=== PATIENT | female | born 1995 | race Caucasian/White ===

== ENCOUNTER 2016-07-26 16:56 | Emergency (ER) | payer BC ==
--- NOTE | 2016-07-26 17:39 | EDPHY ---
H & P Stated Complaint: Fever, nausea, cough, lethagy, aches-neg flu/mono strep yesterday. Time Seen by Provider: 07/26/16 17:09 HPI/ROS: CHIEF COMPLAINT: fever, body aches HISTORY OF PRESENT ILLNESS: 20-year-old female presents emergency department complaining a 3 day history of fevers, body aches. Patient reports mild nasal congestion, a mild intermittent cough. She reports nausea, vomiting and diarrhea that started yesterday. She denies abdominal pain. Patient denies urinary urgency, frequency or dysuria. No hematuria. She denies sore throat. No neck pain. Patient was seen at [facility] Monday, Monday and today. She reports they did a influenza, rapid strep and Monospot that were all negative. Patient last took Tylenol this morning. She has been unable to keep any food or fluids down today. Patient was started on a Z-Hilario today, she was unable to keep the 1st dose down. Her roommate was recently diagnosed with strep throat. The patient reports she has had strep throat many times, this does not feel similar, she does not have a sore throat. 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 Patient reports she has had a fever and body aches a few different times in the last few weeks. She denies chest pain or shortness of breath. REVIEW OF SYSTEMS: A comprehensive 10 point review of systems is otherwise negative aside from elements mentioned in the history of present illness. Source: Patient Exam Limitations: No limitations - Personal History LMP (Females 10-55): 8-14 Days Ago Current Tetanus/Diphtheria Vaccine: Unsure Current Tetanus Diphtheria and Acellular Pertussis (TDAP): Unsure - Medical/Surgical History Hx Asthma: No Hx Chronic Respiratory Disease: No Hx Diabetes: No Hx Cardiac Disease: No Hx Renal Disease: No Hx Cirrhosis: No Hx Alcoholism: No Hx HIV/AIDS: No Hx Splenectomy or Spleen Trauma: No Other PMH: Lemiers syndrome, marijuana. - Social History Smoking Status: Current some day smoker - Physical Exam Exam: Physical Exam Gen: Alert and Oriented, NAD HEENT: PERRL, dry mucous membranes, bilateral TMs normal, bilateral nasal turbinates with erythema, posterior pharynx with erythema, no exudate no hoarseness, no elevation of tongue NECK: Bilateral anterior cervical lymphadenopathy, no meningismus CV: Tachycardic rate and regular rhythm PULM: CTAB, no wheezes ABDOMEN: soft, non tender to palpation, BS present BACK: No CVA tenderness NEURO: Neurologically grossly intact EXTREMITIES: normal appearing SKIN: no rash or break in skin on exposed skin PSYCH: answers questions appropriately. Constitutional: Initial Vital Signs Temperature (C) 38.2 C 07/26/16 16:59 Heart Rate 130 H 07/26/16 16:59 Respiratory Rate 18 07/26/16 16:59 Blood Pressure 80/66 L 07/26/16 16:59 O2 Sat (%) 95 07/26/16 16:59 O2 Delivery Mode Room Air Allergies/Adverse Reactions: No Known Allergies Allergy (Unverified 07/26/16 17:02) Home Medications: Medication Instructions Recorded Ondansetron Odt [Zofran Odt] 4 mg PO Q6-8PRN PRN #8 tab 07/26/16 Orsythia-28 Tablet 07/26/16 Medical Decision Making - Diagnostics Imaging: Chest x-ray independently reviewed by me ED Course/Re-evaluation: IV established, CBC, chemistry panel, urinalysis, lactic acid, blood cultures, influenza, chest x-ray ordered. Patient is given 650 mg of Tylenol p.o. for her temperature of 38.2degrees and 2 L of normal saline are hanging. Repeat vital signs are done when patient arrived to room 18, heart rate down to 100, blood pressure is 100/76. Patient meets the SIRS criteria with an elevated heart rate, hypotension and fever. Patient's white blood cell count is mildly elevated at 11,000 thousand with a left shift, chemistry panel shows a potassium 3.1. I have ordered potassium replacement intravenously and orally as well as 400 mg of magnesium p.o.. Patient has had no emesis or diarrhea in the emergency department. She is feeling much better after IV fluids and Tylenol. After having a conversation with her mother, they are very concerned about her history of Lemierre syndrome. The patient does report a fever intermittently over the past few weeks. Mother states this is how she presented with her diagnosis of Lemierre syndrome. I discussed with the patient and mother that a CT soft tissue neck with IV contrast and CT chest with IV contrast other studies to rule this out. They interested in having done. I discussed the risks and benefits and we have proceeded with these CTs. CT neck and chest are negative for thrombophlebitis or pulmonary embolism. The patient continues feeling better, she has been eating and drinking in the emergency department, her temperature has resolved. She will be discharged home with instructions to return for any worsening symptoms, new symptoms or concerns. She has been given a primary care doctor to establish care with. The patient and family are comfortable with this plan. Differential Diagnosis: Diagnosis considered but not limited to influenza, strep pharyngitis, viral syndrome, Lemierre syndrome. - Data Points Laboratory Results: Laboratory Results 07/26/16 17:20 07/26/16 17:20 Medications Given: Discontinued Medications Acetaminophen (Tylenol) 1,000 mg PO EDNOW ONE Stop: 07/26/16 17:59 Last Admin: 07/26/16 18:06 Dose: 1,000 mg Sodium Chloride (Ns) 1,000 mls @ 0 mls/hr IV ONCE ONE PRN Reason: Wide Open Stop: 07/26/16 18:07 Last Admin: 07/26/16 18:06 Dose: 1,000 mls Potassium Chloride (Potassium Cl 10 Meq (Premix)) 100 mls @ 100 mls/hr IV Q1H BRENDA Stop: 07/26/16 20:29 Last Admin: 07/26/16 20:00 Dose: 100 mls Ibuprofen (Motrin) 600 mg PO EDNOW ONE Stop: 07/26/16 22:52 Last Admin: 07/26/16 23:02 Dose: 600 mg Magnesium Oxide (Magnesium Oxide) 400 mg PO EDNOW ONE Stop: 07/26/16 19:19 Last Admin: 07/26/16 21:19 Dose: 400 mg Ondansetron HCl (Zofran) 4 mg IVP EDNOW ONE Stop: 07/26/16 17:59 Last Admin: 07/26/16 18:06 Dose: 4 mg Ondansetron HCl (Zofran Odt 4 Mg Prepack#2) 1 btl TAKEHOME EDNOW ONE Stop: 07/26/16 22:52 Last Admin: 07/26/16 23:01 Dose: 1 btl Potassium Chloride (Klor-Con) 40 meq PO EDNOW ONE Stop: 07/26/16 19:18 Last Admin: 07/26/16 21:19 Dose: 40 meq Departure - Departure Disposition: Home, Routine, Self-Care Clinical Impression: Viral syndrome Condition: Good Instructions: Ondansetron (By mouth), Viral Syndrome (ED) Additional Instructions: Take 4 mg of Zofran every 8 hours as needed for nausea, eat a bland diet, stay hydrated, take 650 mg of Tylenol every 8 hours with food, you can also take 600 mg of ibuprofen every 8 hours with food. Alternate these every 4 hours. Follow up with the primary care doctor on-call listed, call in the morning to schedule this appointment. Return to the emergency department for any worsening symptoms, new symptoms or concerns. Referrals: Amanuel Flores MD [Medical Doctor] - As per Instructions (Primary care doctor on-call) Stand Alone Forms: School Excuse Prescriptions: Ondansetron Odt [Zofran Odt] 4 mg PO Q6-8PRN PRN #8 tab PRN Reason: Nausea/Vomiting, Can'T Take Po
[2016-07-26 17:46] LABS: % IMMATURE GRANULYOCYTES 0.3 % (0.0-1.1); ABSOLUTE IMMATURE GRANULOCYTES 0.03 10^3/uL (0.00-0.10); ADD DIFF? NO; ADD MORPH? NO; ADD SCAN? NO; ATYPICAL LYMPHOCYTE FLAG 20 (0-99); FRAGMENT RBC FLAG 0 (0-99); HEMATOCRIT 41.2 % (38.0-47.0); HEMOGLOBIN 14.5 g/dL (12.6-16.3); LEFT SHIFT FLG 0 (0-99); LIPEMIA HEMOLYSIS FLAG 90 (0-99); MEAN CELL HEMOGLOBIN 31.9 pg (27.9-34.1); MEAN CELL HEMOGLOBIN CONCENTR. 35.2 g/dL (32.4-36.7); MEAN CELL VOLUME 90.5 fL (81.5-99.8); MEAN PLATELET VOLUME 12.8 fL (8.7-11.7); PLATELET CLUMPS FLAG 0 (0-99); PLATELET COUNT 161 10^3/uL (150-400); RED BLOOD CELL COUNT 4.55 10^6/uL (4.18-5.33); RED CELL DISTRIBUTION WIDTH 11.9 % (11.5-15.2)
[2016-07-26 17:52] LABS: ANION GAP 13 mEq/L (8-16); CALCIUM 9.5 mg/dL (8.5-10.4); CARBON DIOXIDE 22 mEq/l (22-31); CHLORIDE 103 mEq/L (97-110); CREATININE 0.6 mg/dL (0.6-1.0); GLOMERULAR FILTRATION RATE > 60; GLUCOSE 89 mg/dL (70-100); POTASSIUM 3.1 mEq/L (3.5-5.2); SODIUM 138 mEq/L (134-144)
[2016-07-26] MEDS ORDERED: ONDANSETRON 4 MG/2 ML VIAL IVP ONE (17:58)
[2016-07-26] MEDS ORDERED: ACETAMINOPHEN 325 MG TAB PO ONE (17:58)
[2016-07-26] MEDS ORDERED: ACETAMINOPHEN 500 MG TAB ONE (18:02)
[2016-07-26] MEDS ORDERED: NS 1,000 ML IV ONE (18:06)
[2016-07-26] MEDS: POTASSIUM Cl (KCl) 100 ML IV SCH ×2 (18:55→20:00)
[2016-07-26] MEDS ORDERED: POTASSIUM CL 20 MEQ TAB PO ONE (19:17)
[2016-07-26] MEDS ORDERED: MAGNESIUM OXIDE 400 MG TAB PO ONE (19:18)
[2016-07-26 20:17] VITALS: O2SAT 96
[2016-07-26] MEDS ORDERED: IOPAMIDOL (ISOVUE-300) 100 ML BTL IV ONE (21:46)
[2016-07-26] MEDS ORDERED: IOPAMIDOL (ISOVUE 370) 100 ML BTL IV ONE (21:54)
[2016-07-26 22:33] LABS: COLOR PALE YELLOW; LEUKOCYTE ESTERASE,URINE NEGATIVE (NEGATIVE); NITRITE,URINE NEGATIVE (NEGATIVE)
[2016-07-26] MEDS ORDERED: IBUPROFEN 600 MG TAB PO ONE (22:51)
[2016-07-26] MEDS ORDERED: ONDANSETRON 4MG PREPACK#2 BTL TAKEHOME ONE (22:51)
[2016-07-26 22:56] VITALS: BP 115/72; PULSE 81; RESP 16; TEMP 98.8
== END 2016-07-26 23:14 | disposition home or self-care (01) ==
DX: B34.9 Viral infection, unspecified (principal); F17.200 Nicotine dependence, unspecified, uncomplicated
CPT/HCPCS: 96365; 96366; J2405; Q9967